=== PATIENT | male | born 1950 | race Caucasian/White ===

== ENCOUNTER 2023-01-18 09:53 | Outpatient (CLI) | payer BC | END 2023-01-18 09:54 | disposition home or self-care (01) | LOC: RAD 09:53 | PROVIDERS: ATTEND Internal Medicine Critical Care Medicine | DX: R06.00 Dyspnea, unspecified (principal) | CPT/HCPCS: 71046 ==

== ENCOUNTER 2023-01-23 11:08 | Emergency (ER) | payer BC ==
[2023-01-23] MEDS ORDERED: Morphine 4 MG/ML VIAL ONE (12:15)
[2023-01-23] MEDS ORDERED: Cyclobenzaprine 10 MG TAB ONE (12:15)
[2023-01-23] MEDS ORDERED: predniSONE 20 MG TAB ONE (12:15)
[2023-01-23] MEDS ORDERED: Ketorolac Tromethamine 30 MG/ML VIAL ONE (12:15)
[2023-01-23] MEDS ORDERED: HYDROcodone/Acetaminophen 10/325 mg Tablet ONE (14:22)
[2023-01-23] MEDS ORDERED: cefTRIAXone (ROCEPHIN) 2 GM VIAL ONE (23:17)
== END 2023-01-23 14:58 | disposition home or self-care (01) ==
LOC: ERS 11:08
DX: M54.16 Radiculopathy, lumbar region (principal); J44.9 Chronic obstructive pulmonary disease, unspecified; Z87.891 Personal history of nicotine dependence
CPT/HCPCS: 72131; 96374; 96375; J0696; J1885; J2270; J7512

== ENCOUNTER 2023-01-23 21:40 | Inpatient (IN) | payer BC, MEDICARE ==
[2023-01-23 22:14] LABS: Base Excess 1.6 mEq/L (-2.0 to +3.0); Chloride (VBG) 105 mmol/L (98-106); Hematocrit-VBG 43 % (42.0-52.0); Hemoglobin (Hb) 14.6 g/dL (12.6-17.4); Potassium (VBG) 3.44 mmol/L (3.70-5.30); Sodium 136.5 mmol/L (133-146); pH (venous) 7.497 (7.32-7.43)
[2023-01-23 22:16] LABS: #Monocytes 0.6 thou/uL (0.11-0.59); #Neutrophils 6.8 thou/uL (1.40-6.50); %Basophils 0.1 % (0.0-1.0); %Lymphocytes 2.9 % (21.0-51.0); %Monocytes 7.8 % (0.0-10.0); %Neutrophils 88.5 % (42.0-75.0); Hematocrit 40.3 % (42.0-52.0); Hemoglobin 13.1 g/dL (14.0-18.0); Mean Corpuscular HGB CONC 32.5 g/dL (32.0-36.0); Mean Corpuscular Hemoglobin 28.5 pg (27.0-31.0); Mean Corpuscular Volume 87.8 fl (78.0-98.0); Mean Platelet Volume 10.8 fL (7.4-10.4); Platelet Count 171 10x3/uL (130-400); RBC Distribution Width 14.9 % (11.5-14.5); Red Blood Cell (RBC) Count 4.59 mill/uL (4.70-6.10); White Blood Cell (WBC) Count 7.7 10x3/uL (4.8-10.8)
[2023-01-23 22:25] LABS: Bacteria/HPF None Seen HPF (None Seen); Bilirubin Negative (Negative); Blood, Urine Trace (Negative); CAUTI Indications for Culture Alt mental st,lethar; Clarity Clear (Clear); Glucose, Urine (Dipstick) Normal (Negative); Ketone, Urine Negative (Negative); Leukocyte Negative Leu/uL (Negative); Nitrite Negative (Negative); Protein, Urine (Dipstick) 100 mg/dL (Neg-Trace); RBC/HPF 0-3 HPF (0-3); Specific Gravity, Urine 1.024 (1.002-1.036); Squamous Epithelial 0-3 HPF (0-3); WBC/HPF 0-3 HPF (0-3); pH, Urine 7.5 (5.0-9.0)
[2023-01-23 22:38] LABS: INR-International Normal Ratio 1.1; Prothrombin Time 14.1 sec (12.0-14.7)
[2023-01-23 22:42] LABS: CRP (Inflammatory) 29.08 mg/dL (= or < 0.5); Lipase Less than 4 U/L (8-78); Magnesium 1.6 mg/dL (1.6-2.6)
[2023-01-23 22:44] LABS: Urine Culture Reflex No No
[2023-01-23 22:45] LABS: Troponin I 0.014 ng/mL (< 0.028)
[2023-01-23 23:28] LABS: SARS-CoV-2 NAA Rapid Test Not Detected (NotDetected)
[2023-01-23] MEDS ORDERED: Ondansetron PF 4 MG/2 ML Vial IVP PRN (23:42)
[2023-01-23] MEDS ORDERED: cefTRIAXone\\ROCEPHIN 1 GM in Sodium Chloride 0.9% 100 ML IVPB SCH (23:45)
[2023-01-23] MEDS ORDERED: Ipratropium/Albuterol 3 ML NEB NEB PRN (23:53)
[2023-01-24] MEDS ORDERED: cefTRIAXone (ROCEPHIN) 1 GM VIAL ONE (02:18)
[2023-01-24 02:26] VITALS: BMI 27.6
[2023-01-24] MEDS ORDERED: Ketorolac Tromethamine 30 MG/ML VIAL ONE (06:54)
[2023-01-24] MEDS ORDERED: Ketorolac Tromethamine 30 MG/ML VIAL IVP SCH (07:00)
[2023-01-24 08:26] LABS: #Monocytes 0.5 thou/uL (0.11-0.59); #Neutrophils 4.7 thou/uL (1.40-6.50); %Basophils 0.2 % (0.0-1.0); %Eosinophils 0.4 % (0.0-10.0); %Lymphocytes 7.1 % (21.0-51.0); %Monocytes 8.3 % (0.0-10.0); %Neutrophils 83.5 % (42.0-75.0); Hematocrit 39.3 % (42.0-52.0); Hemoglobin 12.4 g/dL (14.0-18.0); Mean Corpuscular HGB CONC 31.6 g/dL (32.0-36.0); Mean Corpuscular Hemoglobin 28.3 pg (27.0-31.0); Mean Corpuscular Volume 89.7 fl (78.0-98.0); Mean Platelet Volume 10.7 fL (7.4-10.4); Platelet Count 154 10x3/uL (130-400); Red Blood Cell (RBC) Count 4.38 mill/uL (4.70-6.10); White Blood Cell (WBC) Count 5.7 10x3/uL (4.8-10.8)
[2023-01-24 08:37] LABS: Anion Gap 12 mmol/L (10-20); BUN (Urea Nitrogen) 12 mg/dL (8.4-25.7); Calc. Creatinine Clearance 93 mL/min (70-130); Calcium 9.3 mg/dL (7.8-10.44); Carbon Dioxide 25 mmol/L (23-31); Chloride 106 mmol/L (98-107); Estimated GFR 91; Glucose 108 mg/dL (83-110); Sodium 139 mmol/L (136-145)
[2023-01-24] MEDS: Doxycycline 100 MG in Sodium Chloride 0.9% 100 ML IVPB SCH ×2 (09:19→20:55)
[2023-01-24] MEDS: Acetaminophen 325 MG TAB PO PRN (14:21)
[2023-01-24] MEDS: Cyclobenzaprine 10 MG TAB PO PRN (15:16)
[2023-01-24] MEDS: cefTRIAXone\\ROCEPHIN 2 GM in Sodium Chloride 0.9% 100 ML IVPB SCH (15:16)
[2023-01-24] MEDS: Acetaminophen/Codeine 30-300mg Tablet PO PRN (18:31)
[2023-01-24] MEDS: Budesonide 0.5 MG/2 ML NEB NEB SCH (18:37)
[2023-01-24] MEDS: Tamsulosin HCl 0.4 MG CAP PO SCH (20:54)
[2023-01-24] MEDS ORDERED: Calcium Carbonate 500 MG ChewTAB PO PRN (21:22)
[2023-01-24] MEDS ORDERED: cefTRIAXone\\ROCEPHIN 2 GM in Sodium Chloride 0.9% 100 ML IVPB SCH (23:00)
[2023-01-25] MEDS ORDERED: Azithromycin 500 MG in Sodium Chloride 0.9% 250 ML 250 ML IVPB SCH (01:00)
[2023-01-25] MEDS: Cyclobenzaprine 10 MG TAB PO PRN (05:33)
[2023-01-25] MEDS: Acetaminophen/Codeine 30-300mg Tablet PO PRN (05:33)
[2023-01-25 06:55] LABS: #Eosinphils 0.1 thou/uL (0.0-0.7); #Neutrophils 3.9 thou/uL (1.40-6.50); %Basophils 0.4 % (0.0-1.0); %Eosinophils 2.5 % (0.0-10.0); %Lymphocytes 10.5 % (21.0-51.0); %Monocytes 17.3 % (0.0-10.0); %Neutrophils 68.9 % (42.0-75.0); Hematocrit 38.8 % (42.0-52.0); Hemoglobin 12.3 g/dL (14.0-18.0); Mean Corpuscular HGB CONC 31.7 g/dL (32.0-36.0); Mean Corpuscular Hemoglobin 28.1 pg (27.0-31.0); Mean Corpuscular Volume 88.6 fl (78.0-98.0); Mean Platelet Volume 10.6 fL (7.4-10.4); Platelet Count 182 10x3/uL (130-400); RBC Distribution Width 14.9 % (11.5-14.5); Red Blood Cell (RBC) Count 4.38 mill/uL (4.70-6.10); White Blood Cell (WBC) Count 5.7 10x3/uL (4.8-10.8)
[2023-01-25 07:23] LABS: Anion Gap 9 mmol/L (10-20); BUN (Urea Nitrogen) 12 mg/dL (8.4-25.7); Calc. Creatinine Clearance 86 mL/min (70-130); Calcium 9.1 mg/dL (7.8-10.44); Carbon Dioxide 24 mmol/L (23-31); Chloride 107 mmol/L (98-107); Estimated GFR 83; Glucose 104 mg/dL (83-110); Potassium 3.7 mmol/L (3.5-5.1); Sodium 136 mmol/L (136-145)
[2023-01-25] MEDS: Budesonide 0.5 MG/2 ML NEB NEB SCH ×2 (07:54→18:43)
[2023-01-25] MEDS: Doxycycline 100 MG in Sodium Chloride 0.9% 100 ML IVPB SCH (08:47)
[2023-01-25] MEDS: Acetaminophen 325 MG TAB PO PRN (08:48)
[2023-01-25] MEDS ORDERED: Lidocaine 4% Patch TD SCH (09:30)
[2023-01-25] MEDS: tiZANidine HCl 4 MG TAB PO SCH ×2 (10:32→21:05)
[2023-01-25] MEDS: HYDROcodone/Acetaminophen 5/325 mg Tablet PO PRN ×2 (13:27→20:37)
[2023-01-25 14:21] LABS: HIV (1/2) Antibody/Antigen Non-Reactive (NonReactive); HIV 1/2 INDEX 0.28 S/CO (<1.00)
[2023-01-25] MEDS: cefTRIAXone\\ROCEPHIN 2 GM in Sodium Chloride 0.9% 100 ML IVPB SCH (17:08)
[2023-01-25] MEDS: Gabapentin 300 MG CAP PO SCH (20:37)
[2023-01-25] MEDS: Tamsulosin HCl 0.4 MG CAP PO SCH (20:37)
[2023-01-25] MEDS: Transdermal Patch Removal TOP SCH (20:38)
[2023-01-25 22:45] LABS: Strep pneumo Urine Ag POSITIVE (NEGATIVE)
[2023-01-26] MEDS: Acetaminophen 325 MG TAB PO PRN ×3 (00:25→15:08)
[2023-01-26] MEDS: HYDROcodone/Acetaminophen 5/325 mg Tablet PO PRN ×5 (04:51→21:57)
[2023-01-26 06:42] LABS: #Eosinphils 0.2 thou/uL (0.0-0.7); #Neutrophils 3.7 thou/uL (1.40-6.50); %Basophils 0.3 % (0.0-1.0); %Eosinophils 2.6 % (0.0-10.0); %Lymphocytes 15.4 % (21.0-51.0); %Monocytes 17.2 % (0.0-10.0); %Neutrophils 64.2 % (42.0-75.0); Hematocrit 37.8 % (42.0-52.0); Hemoglobin 12.2 g/dL (14.0-18.0); Mean Corpuscular HGB CONC 32.3 g/dL (32.0-36.0); Mean Corpuscular Hemoglobin 28.5 pg (27.0-31.0); Mean Corpuscular Volume 88.3 fl (78.0-98.0); Mean Platelet Volume 10.1 fL (7.4-10.4); Platelet Count 198 10x3/uL (130-400); Red Blood Cell (RBC) Count 4.28 mill/uL (4.70-6.10); White Blood Cell (WBC) Count 5.8 10x3/uL (4.8-10.8)
[2023-01-26] MEDS: Budesonide 0.5 MG/2 ML NEB NEB SCH ×2 (06:55→20:09)
[2023-01-26 07:03] LABS: Anion Gap 10 mmol/L (10-20); BUN (Urea Nitrogen) 9 mg/dL (8.4-25.7); CRP (Inflammatory) 19.94 mg/dL (= or < 0.5); Calc. Creatinine Clearance 98 mL/min (70-130); Calcium 9.3 mg/dL (7.8-10.44); Carbon Dioxide 26 mmol/L (23-31); Chloride 106 mmol/L (98-107); Estimated GFR 93; Glucose 105 mg/dL (83-110); Potassium 3.7 mmol/L (3.5-5.1); Sodium 138 mmol/L (136-145)
[2023-01-26] MEDS: tiZANidine HCl 4 MG TAB PO SCH ×2 (08:56→21:43)
[2023-01-26] MEDS: Gabapentin 300 MG CAP PO SCH ×2 (08:56→21:42)
[2023-01-26] MEDS: Lidocaine 4% Patch TD SCH (08:57)
[2023-01-26] MEDS: cefTRIAXone\\ROCEPHIN 2 GM in Sodium Chloride 0.9% 100 ML IVPB SCH (15:09)
[2023-01-26] MEDS: Tamsulosin HCl 0.4 MG CAP PO SCH (21:44)
[2023-01-26] MEDS: Transdermal Patch Removal TOP SCH (21:52)
[2023-01-27] MEDS: HYDROcodone/Acetaminophen 5/325 mg Tablet PO PRN ×2 (02:22→17:04)
[2023-01-27] MEDS: Acetaminophen 325 MG TAB PO PRN ×3 (04:26→20:34)
[2023-01-27] MEDS: Gabapentin 300 MG CAP PO SCH ×2 (08:20→20:32)
[2023-01-27] MEDS: tiZANidine HCl 4 MG TAB PO SCH ×2 (08:20→20:33)
[2023-01-27] MEDS: Lidocaine 4% Patch TD SCH (08:21)
[2023-01-27] MEDS ORDERED: Polyethylene Glycol 3350 17 GM Packet PO PRN (10:15)
[2023-01-27] MEDS: Budesonide 0.5 MG/2 ML NEB NEB SCH ×2 (10:57→18:39)
[2023-01-27] MEDS: cefTRIAXone\\ROCEPHIN 2 GM in Sodium Chloride 0.9% 100 ML IVPB SCH (15:04)
[2023-01-27] MEDS: Tamsulosin HCl 0.4 MG CAP PO SCH (20:31)
[2023-01-28] MEDS: HYDROcodone/Acetaminophen 5/325 mg Tablet PO PRN ×3 (02:44→20:50)
[2023-01-28] MEDS: Acetaminophen 325 MG TAB PO PRN ×2 (08:25→15:07)
[2023-01-28] MEDS: tiZANidine HCl 4 MG TAB PO SCH ×2 (08:25→20:47)
[2023-01-28] MEDS: Gabapentin 300 MG CAP PO SCH ×2 (08:25→20:46)
[2023-01-28] MEDS: Lidocaine 4% Patch TD SCH (08:30)
[2023-01-28] MEDS: Budesonide 0.5 MG/2 ML NEB NEB SCH ×2 (11:04→18:45)
[2023-01-28] MEDS: cefTRIAXone\\ROCEPHIN 2 GM in Sodium Chloride 0.9% 100 ML IVPB SCH (15:00)
[2023-01-28] MEDS: Tamsulosin HCl 0.4 MG CAP PO SCH (20:47)
[2023-01-28] MEDS: Transdermal Patch Removal TOP SCH ×2 (20:48)
[2023-01-29] MEDS: Acetaminophen 325 MG TAB PO PRN ×2 (00:32→08:47)
[2023-01-29] MEDS: Budesonide 0.5 MG/2 ML NEB NEB SCH ×2 (07:32→18:40)
[2023-01-29] MEDS: Lidocaine 4% Patch TD SCH (08:45)
[2023-01-29] MEDS: Gabapentin 300 MG CAP PO SCH ×2 (08:45→21:00)
[2023-01-29] MEDS: tiZANidine HCl 4 MG TAB PO SCH ×2 (08:46→21:00)
[2023-01-29 14:38] LABS: Alb/Glob Ratio 0.7 (0.7-1.7); Albumin 2.8 g/dL (2.9-4.4); Alpha-1-Globulin 0.6 g/dL (0.0-0.4); Alpha-2-Globulin 1.2 g/dL (0.4-1.0); Beta-Globulin 1.2 g/dL (0.7-1.3); Gamma-Globulin 1.1 g/dL (0.4-1.8); Globulin, Total 4.1 g/dL (2.2-3.9); IgA - Total IgA (Sendout) 82 mg/dL (61-437); Immunoglobulin - G (Sendout) 990 mg/dL (603-1613); Immunoglobulin - M (Sendout) 141 mg/dL (15-143); M-Spike Not Observed g/dL (Not Observed)
[2023-01-29] MEDS: cefTRIAXone\\ROCEPHIN 2 GM in Sodium Chloride 0.9% 100 ML IVPB SCH (14:48)
[2023-01-29] MEDS: HYDROcodone/Acetaminophen 5/325 mg Tablet PO PRN (20:59)
[2023-01-29] MEDS: Tamsulosin HCl 0.4 MG CAP PO SCH (21:00)
[2023-01-29] MEDS: Transdermal Patch Removal TOP SCH (21:12)
[2023-01-30] MEDS: Acetaminophen 325 MG TAB PO PRN (00:56)
[2023-01-30 07:01] VITALS: BP 139/72; TEMP 98
[2023-01-30] MEDS: Budesonide 0.5 MG/2 ML NEB NEB SCH (07:17)
[2023-01-30] MEDS: tiZANidine HCl 4 MG TAB PO SCH (08:29)
[2023-01-30] MEDS: Gabapentin 300 MG CAP PO SCH (08:29)
[2023-01-30] MEDS: Lidocaine 4% Patch TD SCH (08:32)
[2023-01-30] MEDS: HYDROcodone/Acetaminophen 5/325 mg Tablet PO PRN (14:31)
[2023-01-30] MEDS: cefTRIAXone\\ROCEPHIN 2 GM in Sodium Chloride 0.9% 100 ML IVPB SCH (15:07)
== END 2023-01-30 16:38 | disposition home or self-care (01) | DRG 871 ==
LOC: ERS 21:40 → ERHOLD 01-24 00:09 → T4-B 01-24 11:47
PROVIDERS: ADMIT Hospitalist; ATTEND Hospitalist
PROC: 3E03329 Introduction of Other Anti-infective into Peripheral Vein, Percutaneous Approach (ICD-10-PCS; 2023-01-24)
PROC: 02HV33Z Insertion of Infusion Device into Superior Vena Cava, Percutaneous Approach (ICD-10-PCS; principal; 2023-01-30)
PROC: B5181ZA Fluoroscopy of Superior Vena Cava using Low Osmolar Contrast, Guidance (ICD-10-PCS; 2023-01-30)
PROC: B548ZZA Ultrasonography of Superior Vena Cava, Guidance (ICD-10-PCS; 2023-01-30)
DX: A41.9 Sepsis, unspecified organism (principal); J13 Pneumonia due to Streptococcus pneumoniae; J18.9 Pneumonia, unspecified organism; M86.18 Other acute osteomyelitis, other site; J44.9 Chronic obstructive pulmonary disease, unspecified; C61 Malignant neoplasm of prostate; M46.46 Discitis, unspecified, lumbar region; Z88.1 Allergy status to other antibiotic agents; Z98.890 Other specified postprocedural states; Z20.822 Contact with and (suspected) exposure to COVID-19; Z87.891 Personal history of nicotine dependence; Z79.899 Other long term (current) drug therapy; M54.16 Radiculopathy, lumbar region
CPT/HCPCS: 36415; 36416; 36569; 71045; 71046; 71250; 72100; 72131; 72148; 80048; 81001; 82805; 83605; 83690; 83735; 84155; 84165; 84484; 85025; 85610; 86140; 86334; 87040; 87077; 87086; 87149; 87186; 87389; 87449; 93005; 93306; 94640; 96365; 96374; 96375; C1751; J0696; J1650; J1885; J2270; J3490; J7512; J7626

== ENCOUNTER 2023-03-08 14:04 | Outpatient (CLI) | payer BC | END 2023-03-08 14:05 | disposition home or self-care (01) | LOC: SCSMRI 14:04 | PROVIDERS: ATTEND Student in an Organized Health Care Education/Training Program | DX: M46.26 Osteomyelitis of vertebra, lumbar region (principal); M46.47 Discitis, unspecified, lumbosacral region; M46.27 Osteomyelitis of vertebra, lumbosacral region; M47.816 Spondylosis without myelopathy or radiculopathy, lumbar region | CPT/HCPCS: 72158 ==

== ENCOUNTER 2025-01-27 07:58 | Outpatient (CLI) | payer BC | END 2025-01-27 07:59 | disposition home or self-care (01) | LOC: RAD 07:58 | PROVIDERS: ATTEND Internal Medicine Critical Care Medicine | DX: R06.00 Dyspnea, unspecified (principal); J98.4 Other disorders of lung; J94.8 Other specified pleural conditions | CPT/HCPCS: 71046 ==